=== PATIENT | male | born 1985 | race Caucasian/White ===

== ENCOUNTER 2018-12-20 22:40 | Emergency (ER) | payer OTHER ==
[2018-12-20 23:04] VITALS: BP 144/89; PULSE 84; TEMP 98.2; BMI 32.5
--- NOTE | 2018-12-21 01:03 | PDOC ---
*Physical Exam - Vital Signs Last Vital Signs Temp Pulse Resp BP Pulse Ox 98.2 F 84 18 144/89 100 12/20/18 23:02 12/20/18 23:02 12/20/18 23:02 12/20/18 23:02 12/20/18 23:02 Medical Decision Making - Medical Decision Making 12/21/18 01:02 Patient seen by the advanced practice provider under my direct supervision. Ancillary testing reviewed as necessary. I agree with plan as outlined by the advanced practice provider.
== END 2018-12-21 01:27 | disposition left against medical advice (07) ==
LOC: JER 22:40
DX: Z53.21 Procedure and treatment not carried out due to patient leaving prior to being seen by health care provider (principal)
CPT/HCPCS: 99282-25